=== PATIENT | female | born 1955 | race Two or more races ===

== ENCOUNTER 2023-09-14 01:47 | Inpatient (IN) | payer MEDICARE, MEDICAID ==
[~2023-09-14] VITALS: Ht 162.6 cm; Wt 78.0 kg
[2023-09-14] VITALS (7 sets, daily range): BP systolic 86–102; BP diastolic 43–63; PULSE 58–66; RESP 13–20; TEMP 97.5–98.4; O2SAT 95–97
[2023-09-14 02:17] LABS: Urine Bacteria None Seen /hpf (None Seen)
[2023-09-14 02:50] LABS: Urine Blood Negative /uL (Negative); Urine Clarity Clear (Clear); Urine Color Light-Yellow (Yellow); Urine Mucus FEW (None Seen); Urine Protein, UAD Negative (Negative); Urine Specific Gravity 1.012 (1.001-1.035); Urine Urobilinogen Normal (Negative); Urine WBC 8 /hpf (0 - 5); Urine pH 5.5 (5.0-9.0)
[2023-09-14] MEDS: KETOROLAC TROMETH 60MG/2ML VIAL IM ONE (03:00)
[2023-09-14 03:04] LABS: Basophils # (auto) 0 10 ^3/uL (0-0.2); Basophils % (auto) 0.2 % (0.0-2.0); Eosinophils # (auto) 0 10 ^3/uL (0-0.8); Eosinophils % (auto) 0.2 % (0.0-7.0); Hematocrit 37.5 % (36.0-46.0); Hemoglobin 12.4 g/dL (12.2-16.2); Lymphocytes # (auto) 1.8 10 ^3/uL (0.4-5.4); Lymphocytes % (auto) 21.9 % (10.0-50.0); Mean Corpuscular Hemoglobin 28.6 pg (28.0-32.0); Mean Corpuscular Hgb Conc. 33.1 g/dL (32.0-36.0); Mean Corpuscular Volume 86.5 fL (80.0-100.0); Monocytes # (auto) 0.5 10 ^3/uL (0-1.3); Monocytes % (auto) 6.5 % (0.0-12.0); Neutrophils # (auto) 5.7 10 ^3/uL (1.6-8.6); Neutrophils % (auto) 71.2 % (37.0-80.0); Red Blood Cells 4.33 10^6/uL (4.0-5.20); Red Cell Distribution Width 14.1 % (11.8-14.3)
[2023-09-14 03:27] LABS: Alanine Aminotransferase 26 U/L (7-40); Alkaline Phosphatase 70 U/L (46-116); Anion Gap 9 (5-15); Aspartate Aminotransferase 14 U/L (13-40); BUN/Creatinine Ratio 8.8 (10.0-20.0); Blood Urea Nitrogen 6 mg/dL (9-23); Calcium 9.5 mg/dL (8.7-10.4); Carbon Dioxide 27 mmol/L (20-30); Chloride 101 mmol/L (98-107); Glucose 144 mg/dL (74-106); Lipase 35 U/L (12-53); Potassium 4.3 mmol/L (3.5-5.1); Sodium 137 mmol/L (136-145)
[2023-09-14 03:28] LABS: Albumin 3.9 g/dL (3.2-4.8); Bilirubin, Total 0.4 mg/dL (0.2-1.0); Total Protein 6.7 g/dL (5.7-8.2)
[2023-09-14] MEDS: levoFLOXacin 500MG 100 ML IV ONE (04:17)
[2023-09-14] MEDS: SODIUM CHLORIDE 0.9% 1,000 ML IV ONE (04:17)
[2023-09-14] MEDS ORDERED: HYDROcodone-ACET 5/325MG TAB PO PRN (04:45)
[2023-09-14] MEDS ORDERED: ONDANSETRON HCL 4 MG/2 ML VIAL IV PRN (04:45)
[2023-09-14] MEDS ORDERED: ACETAMINOPHEN 325 MG TAB PO PRN (04:45)
[2023-09-14] MEDS ORDERED: MORPHINE SULFATE INJ 2 MG/ml SYRG IV PRN (04:45)
[2023-09-14] MEDS: metroNIDAZOLE 500MG/100ML 100 ML IV ONE (05:43)
[2023-09-14] MEDS: LACTATED RINGER'S 1,000 ML IV SCH (09:48)
[2023-09-14] MEDS: cefTRIAXone 1GM/50ML D5W 50 ML IV SCH (09:48)
[2023-09-14] MEDS: PANTOPRAZOLE 40 MG TAB PO ONE (10:07)
[2023-09-14] MEDS: metroNIDAZOLE 500MG/100ML 100 ML IV SCH (13:07)
[2023-09-15 01:00] VITALS: BP 104/48; PULSE 58; RESP 18; TEMP 97.9; O2SAT 94
[2023-09-15] MEDS: SODIUM CHLORIDE 0.9% 500 ML IV ONE (01:40)
[2023-09-15 05:00] VITALS: BP 98/52; PULSE 63; RESP 18; TEMP 97.7; O2SAT 96
[2023-09-15] MEDS: PANTOPRAZOLE 40 MG TAB PO SCH (05:46)
[2023-09-15 06:39] LABS: Basophils # (auto) 0 10 ^3/uL (0-0.2); Basophils % (auto) 0.4 % (0.0-2.0); Eosinophils # (auto) 0.1 10 ^3/uL (0-0.8); Eosinophils % (auto) 1.3 % (0.0-7.0); Hemoglobin 11.8 g/dL (12.2-16.2); Lymphocytes # (auto) 2.7 10 ^3/uL (0.4-5.4); Mean Corpuscular Hemoglobin 28.5 pg (28.0-32.0); Mean Corpuscular Hgb Conc. 32.9 g/dL (32.0-36.0); Mean Corpuscular Volume 86.8 fL (80.0-100.0); Monocytes # (auto) 0.4 10 ^3/uL (0-1.3); Monocytes % (auto) 7.5 % (0.0-12.0); Neutrophils # (auto) 2.5 10 ^3/uL (1.6-8.6); Neutrophils % (auto) 43.8 % (37.0-80.0); Nucleated Red Blood Cells % 0.1 %; Red Blood Cells 4.15 10^6/uL (4.0-5.20); Red Cell Distribution Width 13.9 % (11.8-14.3); White Blood Cell 5.6 10^3/uL (4.4-10.8)
[2023-09-15 06:40] LABS: Chloride 109 mmol/L (98-107); Potassium 4.2 mmol/L (3.5-5.1); Sodium 141 mmol/L (136-145)
[2023-09-15 06:41] LABS: Anion Gap 6 (5-15); Carbon Dioxide 26 mmol/L (20-30)
[2023-09-15 06:46] LABS: Glucose 91 mg/dL (74-106)
[2023-09-15 06:49] LABS: BUN/Creatinine Ratio 9.1 (10.0-20.0); Blood Urea Nitrogen < 5 mg/dL (9-23)
[2023-09-15 08:00] VITALS: BP 114/51; PULSE 51; PULSE 63; RESP 18; TEMP 98.6; O2SAT 96
[2023-09-15 11:36] VITALS: BP 100/64; PULSE 63; RESP 16; TEMP 98.5; O2SAT 98
[2023-09-15] MEDS ORDERED: MET500T PO (12:08)
[2023-09-15] MEDS ORDERED: TRAM-626 PO (12:08)
[2023-09-15] MEDS ORDERED: LEVO500T91 PO (12:08)
[2023-09-15 14:43] VITALS: BP 114/51; PULSE 63; RESP 18; TEMP 36.9; O2SAT 98
== END 2023-09-15 15:20 | disposition home or self-care (01) | DRG 392 ==
LOC: ER 01:47 → OVERFLOW 04:37 → EAST 06:22
PROVIDERS: ADMIT Internal Medicine; ATTEND Internal Medicine
DX: K57.32 Diverticulitis of large intestine without perforation or abscess without bleeding (principal); C18.9 Malignant neoplasm of colon, unspecified; K80.20 Calculus of gallbladder without cholecystitis without obstruction; N28.1 Cyst of kidney, acquired; K44.9 Diaphragmatic hernia without obstruction or gangrene
CPT/HCPCS: 36415; 74176; 80048; 80053; 81001; 83690; 85025; 96365; 96367; 96372; 96375; G0378; J1885; J1956; J3490

== ENCOUNTER 2023-11-30 04:31 | Inpatient (IN) | payer MEDICAID, MEDICARE ==
[~2023-11-30] VITALS: Ht 162.6 cm; Wt 75.0 kg
[2023-11-30] VITALS (7 sets, daily range): BP systolic 110–122; BP diastolic 63–73; PULSE 54–60; RESP 14–20; TEMP 98; O2SAT 95–99
[~2023-11-30 04:31] MED LIST: LEVO500T91 PO; MET500T PO; TRAM-626 PO
[2023-11-30] MEDS: PANTOPRAZOLE 40 MG/10 ML VIAL INJ IV ONE (05:16)
[2023-11-30] MEDS: MORPHINE SULFATE 4 MG/ML SYR/VIAL IV ONE (05:19)
[2023-11-30] MEDS: ONDANSETRON HCL 4 MG/2 ML VIAL IV ONE (05:20)
[2023-11-30] MEDS: SODIUM CHLORIDE 0.9% 1,000 ML IVB ONE (06:09)
[2023-11-30 06:23] LABS: Alanine Aminotransferase 19 U/L (7-40); Albumin 4.5 g/dL (3.2-4.8); Alkaline Phosphatase 77 U/L (46-116); Anion Gap 9 (5-15); Aspartate Aminotransferase 13 U/L (13-40); BUN/Creatinine Ratio 17.1 (10.0-20.0); Bilirubin, Total 0.5 mg/dL (0.2-1.0); Blood Urea Nitrogen 12 mg/dL (9-23); Calcium 9.9 mg/dL (8.7-10.4); Carbon Dioxide 25 mmol/L (20-31); Chloride 104 mmol/L (98-107); Glucose 173 mg/dL (74-106); Lipase 33 U/L (12-53); Potassium 3.8 mmol/L (3.5-5.1); Sodium 138 mmol/L (136-145); Total Protein 7.2 g/dL (5.7-8.2)
[2023-11-30 06:24] LABS: Basophils # (auto) 0 10 ^3/uL (0-0.2); Basophils % (auto) 0.2 % (0.0-2.0); Eosinophils # (auto) 0 10 ^3/uL (0-0.8); Eosinophils % (auto) 0.1 % (0.0-7.0); Hematocrit 39.4 % (36.0-46.0); Hemoglobin 13.3 g/dL (12.2-16.2); Lymphocytes # (auto) 1.3 10 ^3/uL (0.4-5.4); Lymphocytes % (auto) 16.6 % (10.0-50.0); Mean Corpuscular Hemoglobin 29.3 pg (28.0-32.0); Mean Corpuscular Hgb Conc. 33.8 g/dL (32.0-36.0); Mean Corpuscular Volume 86.8 fL (80.0-100.0); Monocytes # (auto) 0.2 10 ^3/uL (0-1.3); Monocytes % (auto) 2.6 % (0.0-12.0); Neutrophils # (auto) 6.5 10 ^3/uL (1.6-8.6); Neutrophils % (auto) 80.5 % (37.0-80.0); Platelet Count (auto) 265 10^3/uL (140-450); Red Blood Cells 4.53 10^6/uL (4.0-5.20); Red Cell Distribution Width 14.2 % (11.8-14.3)
[2023-11-30 07:22] LABS: Urine Bacteria FEW /hpf (None Seen); Urine Blood 1+ /uL (Negative); Urine Clarity Clear (Clear); Urine Color Yellow (Yellow); Urine Mucus FEW (None Seen); Urine Protein, UAD Negative (Negative); Urine Specific Gravity 1.024 (1.001-1.035); Urine Urobilinogen Normal (Negative); Urine WBC 1 /hpf (0 - 5)
[2023-11-30] MEDS ORDERED: KETOROLAC TROMETH 30 MG/ML 1ML VIAL IV PRN (09:15)
[2023-11-30] MEDS ORDERED: ONDANSETRON HCL 4 MG/2 ML VIAL IV PRN (09:15)
[2023-11-30] MEDS ORDERED: HYDROmorphone HCL 2 MG/ML VL/or syr IV PRN (09:15)
[2023-11-30] MEDS: HYDROcodone-ACET 5/325MG TAB PO PRN (20:21)
[2023-12-01 01:06] VITALS: BP 91/57; PULSE 61; RESP 19; TEMP 98.4; O2SAT 97
[2023-12-01 05:00] VITALS: BP 97/58; PULSE 57; RESP 19; TEMP 98.8; O2SAT 96
[2023-12-01 07:34] LABS: Chloride 109 mmol/L (98-107); Potassium 3.7 mmol/L (3.5-5.1); Sodium 141 mmol/L (136-145)
[2023-12-01 07:35] LABS: Anion Gap 6 (5-15); Calcium 9.4 mg/dL (8.7-10.4); Carbon Dioxide 26 mmol/L (20-31)
[2023-12-01 07:39] LABS: Basophils # (auto) 0 10 ^3/uL (0-0.2); Basophils % (auto) 0.3 % (0.0-2.0); Eosinophils # (auto) 0.1 10 ^3/uL (0-0.8); Hematocrit 36.4 % (36.0-46.0); Hemoglobin 12.4 g/dL (12.2-16.2); Lymphocytes # (auto) 2.4 10 ^3/uL (0.4-5.4); Lymphocytes % (auto) 44.4 % (10.0-50.0); Mean Corpuscular Hemoglobin 29.5 pg (28.0-32.0); Mean Corpuscular Volume 86.8 fL (80.0-100.0); Monocytes # (auto) 0.4 10 ^3/uL (0-1.3); Monocytes % (auto) 7.9 % (0.0-12.0); Neutrophils # (auto) 2.5 10 ^3/uL (1.6-8.6); Neutrophils % (auto) 46.4 % (37.0-80.0); Platelet Count (auto) 225 10^3/uL (140-450); Red Blood Cells 4.19 10^6/uL (4.0-5.20); Red Cell Distribution Width 14.5 % (11.8-14.3); White Blood Cell 5.4 10^3/uL (4.4-10.8)
[2023-12-01 07:40] LABS: BUN/Creatinine Ratio 9.4 (10.0-20.0); Blood Urea Nitrogen 6 mg/dL (9-23); Glucose 91 mg/dL (74-106)
[2023-12-01 08:00] VITALS: PULSE 54; RESP 16; O2SAT 98
[2023-12-01 08:39] VITALS: BP_SYST 162; BP_SYST 99; BP_DIAS 69; BP_DIAS 87; PULSE 54; RESP 16; TEMP 97.6; O2SAT 98
[2023-12-01 08:52] LABS: Amphetamine Screen, Urine Neg (NEGATIVE); Barbiturate Scree,Urine Neg (NEGATIVE); Benzodiazephine Screen, Urine Neg (NEGATIVE); Cannabinoid Screen, Urine Neg (NEGATIVE); Cocaine Screen, Urine Neg (NEGATIVE); Opiate Scree,Urine Pos (NEGATIVE); Phencyclidine Screen, Urine Neg (NEGATIVE)
[2023-12-01 12:31] VITALS: BP 130/72; PULSE 58; RESP 17; TEMP 97.6; O2SAT 97
[2023-12-01] MEDS ORDERED: ERGOCALCIFEROL 50,000 UNIT(1.25MG) CAP PO SCH (12:45)
[2023-12-01] MEDS ORDERED: cefTRIAXone 1GM/50ML D5W 50 ML IV ONE (13:15)
[2023-12-01] MEDS ORDERED: metroNIDAZOLE 500MG/100ML 100 ML IV SCH (14:00)
[2023-12-02] MEDS ORDERED: cefTRIAXone 1GM/50ML D5W 50 ML IV SCH (09:00)
== END 2023-12-01 13:08 | disposition left against medical advice (07) ==
LOC: ER 04:31 → OVERFLOW 09:34 → WEST WING 13:40
PROVIDERS: ADMIT Internal Medicine; ATTEND Internal Medicine
DX: K80.10 Calculus of gallbladder with chronic cholecystitis without obstruction (principal); K82.8 Other specified diseases of gallbladder; Z53.29 Procedure and treatment not carried out because of patient's decision for other reasons; R73.9 Hyperglycemia, unspecified; Z82.49 Family history of ischemic heart disease and other diseases of the circulatory system; Z79.899 Other long term (current) drug therapy
CPT/HCPCS: 36415; 74181; 76705; 80048; 80053; 80307; 81001; 82306; 82607; 83036; 83690; 84443; 85025; 96361; 96374; 96375; G0378; J2405; J2470

== ENCOUNTER 2024-07-06 23:50 | Emergency (ER) | payer SELFPAY ==
[~2024-07-06] VITALS: Ht 162.6 cm; Wt 63.6 kg
[2024-07-07 00:32] LABS: Basophils # (auto) 0 10 ^3/uL (0-0.2); Basophils % (auto) 0.2 % (0.0-2.0); Eosinophils # (auto) 0 10 ^3/uL (0-0.8); Eosinophils % (auto) 0.4 % (0.0-7.0); Hematocrit 39.7 % (36.0-46.0); Hemoglobin 13.4 g/dL (12.2-16.2); Lymphocytes # (auto) 2.6 10 ^3/uL (0.4-5.4); Mean Corpuscular Hemoglobin 28.9 pg (28.0-32.0); Mean Corpuscular Hgb Conc. 33.6 g/dL (32.0-36.0); Mean Corpuscular Volume 85.9 fL (80.0-100.0); Monocytes # (auto) 0.5 10 ^3/uL (0-1.3); Monocytes % (auto) 5.9 % (0.0-12.0); Neutrophils # (auto) 5.5 10 ^3/uL (1.6-8.6); Neutrophils % (auto) 63.5 % (37.0-80.0); Platelet Count (auto) 273 10^3/uL (140-450); Red Blood Cells 4.63 10^6/uL (4.0-5.20); Red Cell Distribution Width 13.8 % (11.8-14.3); White Blood Cell 8.6 10^3/uL (4.4-10.8)
--- NOTE | 2024-07-07 00:35 | ED.PDOC ---
GI ASSESSMENT HPI Comments 69-year-old female that came to ER for abdominal pain. Patient has history of gallstones. States she ate at a buffet last night, and shortly afterwards she started having diffuse abdominal pain, with the episodes of nausea and vomiting. Patient states she feels like her gallstone is acting up again. Denies any prior history of abdominal surgeries Chief Complaint: Abdominal pain Time Seen by MD: 00:34 Reviewed Notes: Nurses Notes Allergies: Coded Allergies: NO KNOWN ALLERGIES (Unverified , 09/14/23) Home Meds Active Scripts Tramadol HCl (Tramadol HCl) 50 Mg Tab, 50 MG PO TID PRN for 5 Days, #15 TAB Prov:MICAELA HAGAN MD 09/15/23 Metronidazole (Metronidazole) 500 Mg Tab, 500 MG PO TID for 10 Days, #30 TAB Prov:MICAELA HAGAN MD 09/15/23 Levofloxacin Hemihydrate (LEVAQUIN 500 MG) 500 Mg Tab, 500 MG PO DAILY for 10 Days, #10 TAB Prov:MICAELA HAGAN MD 09/15/23 Information Source: Patient Mode of Arrival: EMS Timing: Hours Duration: Intermittent Prehospital treatment: None Quality: Aching, Cramping Vomitus: Watery Stool: Normal Severity: Moderate Recent: None Recent Hx of: Other (Gallstones) Pain Location: Diffuse Associated sign and symptoms: Nausea, Vomiting, Abdominal Pain Past Medical History PAST MEDICAL HISTORY: Gallstones Surgical History: Denies all surgeries TEST EXAMINER History: Denies all TEST EXAMINER Hx Family History Family History: Family hx of Cancer Social History Smoker: Non-Smoker Alcohol: Denies ETOH Use Drugs: Denies Drug Use Lives In: Home Constitutional: denies: chills, diaphoresis, fatigue, fever, malaise, sweats, weakness, others EENTM: denies: blurred vision, double vision, ear bleeding, ear discharge, ear drainage, ear pain, ear ringing, eye pain, eye redness, hearing loss, mouth pain, mouth swelling, nasal discharge, nose bleeding, nose congestion, nose pain, photophobia, tearing, throat pain, throat swelling, voice changes, others Respiratory: denies: cough, hemoptysis, orthopnea, SOB at rest, shortness of breath, SOB with excertion, stridor, wheezing, others Cardiovascular: denies: chest pain, dizzy spells, diaphoresis, Dyspnea on exertion, edema, irregular heart beat, left arm pain, lightheadedness, palpitations, PND, syncope, others Gastrointestinal: reports: abdominal pain, nausea, vomiting; denies: abdomen distended, blood streaked bowels, constipated, diarrhea, dysphagia, difficulty swallowing, hematemesis, melena, poor appetite, poor fluid intake, rectal bleeding, rectal pain, others Genitourinary: denies: abnormal vagina bleeding, burning, dyspareunia, dysuria, flank pain, frequency, hematuria, incontinence, pain, , vagina discharge, urgency, others Neurological: denies: dizziness, fainting, headache, left sided numbness, left sided weakness, numbness, paresthesia, pre-existing deficit, right sided numbness, right sided weakness, seizure, speech problems, tingling, tremors, weakness, others Musculoskeletal: denies: back pain, gout, joint pain, joint swelling, muscle pain, muscle stiffness, neck pain, others Integumetry: denies: bruises, change in color, change in hair/nails, dryness, laceration, lesions, lumps, rash, wounds, others Allergic/Immunocompromised: denies: Difficulty Healing, Frequent Infections, Hives, Itching, others Hematologic/Lymphatic: denies: anemia, blood clots, easy bleeding, easy bruising, swollen glands, others Endocrine: denies: excessive hunger, excessive sweating, excessive thirst, excessive urination, flushing, intolerance to cold, intolerance to heat, unexplained weight gain, unexplained weight loss, others Psychiatric: denies: anxiety, bipolar disorder, depression, hopeless, panic disorder, schizophrenia, sleepless, suicidal, others Physical Exam General Appearance: No Apparent Distress, Normal HEENT: Normal ENT Inspection, Pharynx Normal, TMs Normal Neck: Full Range of Motion, Non-Tender, Normal, Normal Inspection Respiratory: Chest Non-Tender, Lungs Clear, No Accessory Muscle Use, No Respiratory Distress, Normal Breath Sounds Cardiovascular: No Edema, No JVD, No Murmur, No Gallop, Normal Peripheral Pu lses, Regular Rate/Rhythm Breast Exam: Deferred Gastrointestinal: No Organomegaly, No Pulsatile Mass, Normal Bowel Sounds, Soft, Tenderness Genitalia: Deferred Pelvic: Deferred Rectal: Deferred Extremities: No calf tenderness, Normal capillary refill, Normal inspection, Normal range of motion, Non-tender, No pedal edema Musculoskeletal : Apperance: Normal Neurologic: Alert, operations lieutenant II-XII nml as Tested, No Motor Deficits, Normal Affect, Normal Mood, No Sensory Deficits Cerebellar Function: Normal Reflexes: Normal Skin: Dry, Normal Color, Warm Lymphatic: No Adenopathy Was a procedure done? Was a procedure done?: No GI differential Dx Differential Diagnosis: Cholecystitis, Constipation, Diverticular disease, Gastritis/PUD, Gastroenteritis, Pancreatitis, UTI, Urolithiasis X-Ray, Labs, Meds, VS Vital Signs Date Time Temp Pulse Resp B/P (MAP) Pulse Ox O2 Delivery O2 Flow Rate FiO2 07/07/24 04:15 72 18 145/82 07/07/24 04:14 97.5 72 20 145/82 (103) 98 97.5 07/07/24 00:22 97.2 59 18 141/100 (114) 100 97.2 Lab Test 07/07/24 00:16 Range/Units White Blood Count 8.6 4.4-10.8 10^3/uL Red Blood Count 4.63 4.0-5.20 10^6/uL Hemoglobin 13.4 12.2-16.2 g/dL Hematocrit 39.7 36.0-46.0 % Mean Corpuscular Volume 85.9 80.0-100.0 fL Mean Corpuscular Hemoglobin 28.9 28.0-32.0 pg Mean Corpuscular Hemoglobin Concent 33.6 32.0-36.0 g/dL Red Cell Distribution Width 13.8 11.8-14.3 % Platelet Count 273 140-450 10^3/uL Mean Platelet Volume 7.4 6.9-10.8 fL Neutrophils (%) (Auto) 63.5 37.0-80.0 % Lymphocytes (%) (Auto) 30.0 10.0-50.0 % Monocytes (%) (Auto) 5.9 0.0-12.0 % Eosinophils (%) (Auto) 0.4 0.0-7.0 % Basophils (%) (Auto) 0.2 0.0-2.0 % Neutrophils # (Auto) 5.5 1.6-8.6 10 ^3/uL Lymphocytes # (Auto) 2.6 0.4-5.4 10 ^3/uL Monocytes # (Auto) 0.5 0-1.3 10 ^3/uL Eosinophils # (Auto) 0 0-0.8 10 ^3/uL Basophils # (Auto) 0 0-0.2 10 ^3/uL Nucleated Red Blood Cells 0.0 % Sodium Level 138 136-145 mmol/L Potassium Level 3.5 3.5-5.1 mmol/L Chloride Level 103 98-107 mmol/L Carbon Dioxide Level 24 20-31 mmol/L Anion Gap 11 5-15 Blood Urea Nitrogen 12 9-23 mg/dL Creatinine 0.76 0.550-1.02 mg/dL Glomerular Filtration Rate Calc 84 >90 mL/min BUN/Creatinine Ratio 15.8 10.0-20.0 Serum Glucose 136 H 74-106 mg/dL Calcium Level 9.4 8.7-10.4 mg/dL Total Bilirubin 0.5 0.2-1.0 mg/dL Aspartate Amino Transferase (AST) 22 13-40 U/L Alanine Aminotransferase (ALT) 39 7-40 U/L Alkaline Phosphatase 71 46-116 U/L Total Protein 7.1 5.7-8.2 g/dL Albumin 4.5 3.2-4.8 g/dL Lipase 37 12-53 U/L Current Medications Medications (Trade) Dose Ordered Sig/Go Route Start Time Stop Time Status Last Admin Hydromorphone HCl (Dilaudid Injection) 1 mg ONCE ONCE IV 07/07/24 00:30 07/07/24 00:31 DC 07/07/24 04:15 Ketorolac Tromethamine (Toradol Injection) 15 mg ONCE ONCE IV 07/07/24 00:30 07/07/24 00:31 DC 07/07/24 04:15 Ondansetron HCl (Zofran) 4 mg ONCE ONCE IV 07/07/24 00:30 07/07/24 00:31 DC 07/07/24 04:14 Time of 1ST Reevaluation: 00:25 Reevaluation 1ST: Unchanged Patient Education/Counseling: Diagnosis, Treatment Family Education/Counseling: No Family Present Departure 1 Departure Time of Disposition: 02:30 Impression: Primary Impression: Cholelithiasis Additional Impression: Intractable abdominal pain Disposition: LEFT AGAINST MEDICAL ADVICE Condition: Guarded Discharged With: Self (69-year-old female with a history of gallstone gallstones now complaining of some upper abdominal pain for the last 2 days afte r she ate a greasy meal at [employer] for her birthday a couple days ago) Comments Acute Abdominal Pain - Suspected Cholecystitis Chief Complaint: Upper abdominal pain x 2 days History of Present Illness: 69-year-old female presents with upper abdominal pain that started two days ago after consuming a greasy meal at [employer] during her birthday celebration. Patient has a known history of gallstones. The pain developed following the fatty meal intake, which is consistent with biliary colic progressing to cholecystitis. Review of Systems: Limited ROS due to focused emergent evaluation Constitutional: No fever reported GI: Positive for upper abdominal pain, No reported nausea or vomiting All other systems reviewed and negative Lab Results: CBC: Within normal limits Chemistry Panel: Within normal limits Liver Function Tests (LFTs): Within normal limits Imaging and Other Relevant Results: Abdominal Ultrasound Findings: - Distended gallbladder - Positive sonographic Wong's sign - Features consistent with early cholecystitis - Known gallstones visualized Medical Decision Making: Summary Statement: 69-year-old female with known gallstones presenting with post-prandial upper abdominal pain and ultrasound findings consistent with early cholecystitis. Problem List: 1. Acute cholecystitis 2. Cholelithiasis Differential Diagnosis: 1. Acute cholecystitis 2. Biliary colic 3. Acute pancreatitis 4. Gastritis 5. Peptic ulcer disease ED Course: Patient evaluated with comprehensive labs and imaging. Given imaging findings consistent with early cholecystitis, surgical consultation was obtained for consideration of cholecystectomy. GI consultation also requested. Assessment and Plan: 1. Acute Cholecystitis: - Admit to hospital for surgical management - Surgical consultation obtained for evaluation for cholecystectomy - GI consultation requested - NPO status - IV fluids - Pain management as needed 2. Disposition: - Admission to hospital pending surgical evaluation Billing Information: ICD-10: K81.0 - Acute cholecystitis ICD-10: K80.20 - Calculus of gallbladder without cholecystitis On reevaluation the patient is declining admission and wants to go home. I have voiced my concerns for the patient's health given that a full evaluation and treatment had not occurred. I have discussed the need for continued evaluation to determine if their symptoms are caused by a condition that present risk of or morbidity. Risks including but not limited to , permanent disability, prolonged hospitalization, prolonged illness, were discussed. I discussed the specific benefits of additional treatment, as well as tried offering alternative options in hopes that the patient might be amenable to partial evaluation and treatment which would be medically beneficial to the patient. However, the patient declined my options and insisted on leaving. Patient has a clear sensorium and GCS 15 and expresses understanding of the risks with leaving. Because I have been unable to convince the patient to stay, I answered all of their questions about their condition and asked them to return to the ED as soon as possible to complete their evaluation, especially if their symptoms worsen or do not improve. I emphasized that leaving against medical advice does not preclude returning here for further evaluation. I asked the patient to return if they change their mind about the further evaluation and treatment. I strongly encouraged the patient to return to this Emergency Department or any Emergency Department at any time, particularly with worsening symptoms. Critical Care Note Critical Care Time?: No Stability Stability form required: No Heart Score Heart Score: Heart Score Response (Comments) Value History N/A 0 EKG N/A 0 Age N/A 0 Risk Factors N/A 0 Troponin N/A 0 Total 0 I personally scribed for GER MONSIVAIS MD ([email or web address]) on 07/07/24 at 00:35. Electronically submitted by Sravan Tanner ([email or web address]). GER MONSIVAIS MD July 07, 2024 00:35
[2024-07-07 00:46] LABS: Alanine Aminotransferase 39 U/L (7-40); Albumin 4.5 g/dL (3.2-4.8); Alkaline Phosphatase 71 U/L (46-116); Anion Gap 11 (5-15); Aspartate Aminotransferase 22 U/L (13-40); BUN/Creatinine Ratio 15.8 (10.0-20.0); Bilirubin, Total 0.5 mg/dL (0.2-1.0); Blood Urea Nitrogen 12 mg/dL (9-23); Calcium 9.4 mg/dL (8.7-10.4); Carbon Dioxide 24 mmol/L (20-31); Chloride 103 mmol/L (98-107); Lipase 37 U/L (12-53); Potassium 3.5 mmol/L (3.5-5.1); Sodium 138 mmol/L (136-145); Total Protein 7.1 g/dL (5.7-8.2)
[2024-07-07 00:55] LABS: Glucose 136 mg/dL (74-106)
[2024-07-07 04:14] VITALS: TEMP 97.5; O2SAT 98
[2024-07-07] MEDS: ONDANSETRON HCL 4 MG/2 ML VIAL IV ONE (04:14)
--- NOTE | 2024-07-07 04:14 | DVH ---
Examination: [facility] CLINICAL INDICATION: abd pain h/o gallstones COMPARISON: None. TECHNIQUE: Using real-time ultrasonic imaging, the abdomen was examined. FINDINGS: Liver: Length: 13.97 cm Echotexture: Fatty infiltration noted. No intrahepatic ductal dilatation. No focal mass seen. Portal vein: Hepatopetal flow. No ascites or pleural effusion. Gallbladder: Distended gallbladder with non-mobile gallstone at the neck measuring approximately 2.09 cm. Gallbladder wall thickness: 3.32 mm. Presence of sludge. Wong�s sign: Positive. No gallbladder polyps. Common Bile Duct (CBD): Partially visualized, measures 6.1 mm Appears echo free. Pancreas: Normal in appearance. Right Kidney: Size: 8.67 cm. Normal cortical echogenicity. No hydronephrosis or stones. No mass seen. IMPRESSION: 1. Distended gallbladder with approximately 2.09 cm non-mobile stone at the neck and associated slud ge. 2. Positive sonographic Wong�s sign, suggestive of acute cholecystitis. 3. Fatty infiltration of the liver. 4. Common measures 6.1 mm, borderline prominent. 5. Right kidney is normal in size and echogenicity, with no evidence of hydronephrosis or calculi. Suggest clinical correlation and follow-up as clinically deemed necessary. Electronically Signed 07/07/2024 04:12 Jackie Lam
[2024-07-07 04:15] VITALS: BP 145/82; PULSE 72; RESP 18
[2024-07-07] MEDS: KETOROLAC TROMETH 30 MG/ML 1ML VIAL IV ONE (04:15)
[2024-07-07] MEDS: HYDROmorphone HCL 2 MG/ML VL/or syr IV ONE (04:15)
[2024-07-07] MEDS ORDERED: ONDANSETRON HCL 4 MG/2 ML VIAL IV PRN (05:30)
[2024-07-07] MEDS ORDERED: ACETAMINOPHEN 325 MG TAB PO PRN (05:30)
[2024-07-07] MEDS ORDERED: HYDROcodone-ACET 5/325MG TAB PO PRN (05:30)
[2024-07-07] MEDS ORDERED: SODIUM CHLORIDE 0.9% 1,000 ML IV SCH (05:30)
[2024-07-07] MEDS ORDERED: HYDROmorphone HCL 2 MG/ML VL/or syr IV PRN (05:30)
[2024-07-07] MEDS: PIPERACILLIN-TAZOB 3.375GM 100 ML IV ONE (05:33)
[2024-07-07 05:48] LABS: Urine Bacteria None Seen /hpf (None Seen)
[2024-07-07 06:08] LABS: Urine Blood 1+ /uL (Negative); Urine Clarity Turbid (Clear); Urine Color Yellow (Yellow); Urine Mucus FEW (None Seen); Urine Protein, UAD TRACE (Negative); Urine Specific Gravity 1.029 (1.001-1.035); Urine Squamous Epithelial Cell FEW /hpf (<5); Urine Urobilinogen Normal (Negative); Urine WBC 1 /HPF (0-5)
[2024-07-07] MEDS ORDERED: PIPERACILLIN-TAZOB 3.375GM 100 ML IV SCH (14:00)
== END 2024-07-07 06:33 | disposition left against medical advice (07) ==
LOC: ER 23:50
DX: K80.00 Calculus of gallbladder with acute cholecystitis without obstruction (principal); Z79.899 Other long term (current) drug therapy
CPT/HCPCS: 36415; 76705; 80053; 81001; 83605; 83690; 85025; 87040; 96365; 96375; 99285; J1171; J1885; J2405; J2543